=== PATIENT | female | born 1965 | race Caucasian/White ===

== ENCOUNTER 2022-05-20 04:28 | Day surgery (SDC) | payer OTHER ==
[2022-05-18 10:56] VITALS: BMI 27.6
[2022-05-20 09:31] VITALS: TEMP 97.3
[2022-05-20 09:49] VITALS: RESP 14
[2022-05-20 10:23] VITALS: BP 101/61; PULSE 73
== END 2022-05-20 10:23 | disposition home or self-care (01) ==
LOC: JASU-ENDO 04:28
PROVIDERS: ATTEND Internal Medicine Gastroenterology
PROC: 0DJD8ZZ Inspection of Lower Intestinal Tract, Via Natural or Artificial Opening Endoscopic (ICD-10-PCS; principal; 2022-05-20 09:00)
DX: Z12.11 Encounter for screening for malignant neoplasm of colon (principal); K63.89 Other specified diseases of intestine; Z83.71 Family history of colonic polyps